=== PATIENT | male | born 1965 | race Caucasian/White ===

== ENCOUNTER 2016-12-22 21:43 | Emergency (ER) | payer MEDICARE, MEDICAID ==
[~2016-12-22] VITALS: Ht 190.5 cm; Wt 126.6 kg
[2016-12-22 21:51] VITALS: BP 142/88
--- NOTE | 2016-12-22 23:00 | NUR ---
PATIENT LEFT WITHOUT BEING SEEN BY DR. LEAL. NO FURTHER CARE PROVIDED FOR PATIENT.
== END 2016-12-22 23:00 | disposition left against medical advice (07) ==
LOC: MED 21:43
DX: M54.9 Dorsalgia, unspecified (principal); Z53.21 Procedure and treatment not carried out due to patient leaving prior to being seen by health care provider